=== PATIENT | female | born 1975 | race Caucasian/White ===

== ENCOUNTER 2021-06-12 13:50 | Emergency (ER) | payer SELFPAY ==
[2021-06-12] VITALS (9 sets, daily range): BP systolic 88–154; BP diastolic 54–72; PULSE 64–98; RESP 10–18; TEMP 36.6–36.9; O2SAT 97–100; BMI 25.7
--- NOTE | 2021-06-12 14:15 | HMH.EDGENADL ---
ED Disposition Clinical Impression: Opiate overdose Qualifiers: Encounter type: initial encounter Injury intent: accidental or unintentional Qualified Code(s): T40.601A - Poisoning by unspecified narcotics, accidental (unintentional), initial encounter Disposition: Home, Self-Care Condition on Discharge: Good Instructions: DI for Drug Overdose in Adults Additional Instructions: Return to the emergency department or follow-up with primary care provider for further problems. Referrals: Provider,Referral, [Primary Care Provider] - - Critical Care Critical Care Time: No Attestation: On , the high probability of a clinically significant, sudden or life threatening deterioration of the following system(s) required my full and direct attention, intervention and personal management. The time I documented below is in addition to time spent performing reported procedures but includes the following listed in this critical care notation. Medical Decision Making - Andres Inquiry Pt receiving controlled substance: No Vital Signs: 06/12/21 14:14 06/12/21 15:01 06/12/21 15:33 Temperature 98.4 F Temperature Source Oral Pulse Rate 71 78 Pulse Rate [Radial] 70 Respiratory Rate 16 18 16 Blood Pressure 106/72 L 103/65 L Blood Pressure [Right Arm] 154/54 H Blood Pressure Mean 80 72 Blood Pressure Mean [Right Arm] 87 Blood Pressure Position [Right Arm] Sitting 02 Sat by Pulse Oximetry 98 97 98 Oxygen Delivery Method Room Air 06/12/21 16:00 06/12/21 16:40 06/12/21 17:00 Temperature Temperature Source Pulse Rate 64 72 71 Pulse Rate [Radial] Respiratory Rate 18 14 15 Blood Pressure 100/70 L 103/65 L 89/61 L Blood Pressure [Right Arm] Blood Pressure Mean 68 75 68 Blood Pressure Mean [Right Arm] Blood Pressure Position [Right Arm] 02 Sat by Pulse Oximetry 100 100 99 Oxygen Delivery Method 06/12/21 17:30 06/12/21 18:00 Temperature Temperature Source Pulse Rate Pulse Rate [Radial] Respiratory Rate 16 14 Blood Pressure 90/60 L 88/54 L Blood Pressure [Right Arm] Blood Pressure Mean 68 64 Blood Pressure Mean [Right Arm] Blood Pressure Position [Right Arm] 02 Sat by Pulse Oximetry 98 97 Oxygen Delivery Method - Lab Data Lab Results 06/12/21 16:28: WBC 7.0, RBC 4.59, Hgb 14.0, Hct 44.1, MCV 95.9, MCH 30.4, MCHC 31.7 L, RDW 13.9, Plt Count 258, MPV 8.1, Neut % (Auto) 71.3, Lymph % (Auto) 19.7, [place] % (Auto) 6.7, Eos % (Auto) 1.9, Baso % (Auto) 0.5, Neut # (Auto) 5.0, Lymph # (Auto) 1.4, [place] # (Auto) 0.5, Eos # (Auto) 0.1, Baso # (Auto) 0.0 06/12/21 16:28: Sodium 141, Potassium 3.7, Chloride 110 H, Carbon Dioxide 23, Anion Gap 11.7, BUN 7, Creatinine 0.90, Estimated Creat Clear 83, Estimated GFR 67, Est GFR ( Amer) 81, Glucose 84, Calcium 7.8 L, Total Bilirubin 0.4, AST 16, ALT 8 L, Alkaline Phosphatase 42, Total Protein 6.1 L, Albumin 3.5, Globulin 2.6, Albumin/Globulin Ratio 1.3 06/12/21 16:28: Plasma/Serum Alcohol < 10 Result diagrams: 06/12/21 16:28 06/12/21 16:28 Orders (Tests/Meds): ED MEDICATIONS Discontinued Medications Generic Name Dose Route Start Last Admin Trade Name [place] PRN Reason Stop Dose Admin Naloxone HCl 2 mg 06/12/21 14:15 06/12/21 13:53 Naloxone 2mg/2ml Syringe NS 06/12/21 14:16 2 mg ONCE ONE Administration Naloxone HCl 2 mg 06/12/21 14:18 06/12/21 13:55 Naloxone 2mg/2ml Syringe IV 06/12/21 14:19 2 mg ONCE ONE Administration Ondansetron HCl 4 mg 06/12/21 14:18 06/12/21 14:00 Ondansetron 4mg/2ml Vial IV 06/12/21 14:19 4 mg ONCE ONE Administration Ondansetron HCl 4 mg 06/12/21 14:19 06/12/21 14:05 Ondansetron 4mg/2ml Vial IV 06/12/21 14:20 4 mg ONCE ONE Administration Sodium Chloride 1,000 ml 06/12/21 15:32 06/12/21 17:13 Sodium Chloride 0.9% 1000ml Bag IV 06/12/21 15:33 1,000 ml BOLUS ONE Administration ORDERS Category Date Time Status Drug Screen,Urin
--- NOTE | 2021-06-12 14:23 | ECG_ITS ---
APPROVED REPORT Exam: Resting ECG HR:88 bpm ECG Measurements Heart Rate 88 AXES UT 154 P 55 QRSd 82 QRS 56 QT 396 T 32 QTc 479 Conclusion Normal sinus rhythm Possible Left atrial enlargement Borderline ECG Electronically signed by : Barber Sargent MD 06/16/2021 21:05:14
[2021-06-12 16:43] LABS: Basophils % 0.5 % (0.1-2.0); Eosinophils # 0.1 K/mm3 (0.0-0.4); Eosinophils % 1.9 % (0.1-12.0); Hematocrit 44.1 % (37.0-47.0); Lymphocytes # 1.4 K/mm3 (0.7-4.5); Lymphocytes % 19.7 % (10-50); Mean Corpuscular HGB Conc 31.7 g/dL (31.8-35.4); Mean Corpuscular Hemoglobin 30.4 pg (27.0-31.2); Mean Corpuscular Volume 95.9 fl (81-99); Mean Platelet Volume 8.1 fl (7.4-10.4); Monocytes # 0.5 K/mm3 (0.1-1.0); Monocytes % 6.7 % (1.7-9.3); Neutrophils % 71.3 % (37.0-80.0); Platelet Count 258 K/mm3 (142-424); Red Blood Count 4.59 M/mm3 (4.20-5.40); Red Cell Distribution Width 13.9 % (11.5-17.5)
[2021-06-12 16:52] LABS: Alanine Aminotransferase 8 U/L (12-78); Albumin Level 3.5 g/dl (3.5-5.0); Albumin/Globulin Ratio 1.3 (1.1-1.8); Alkaline Phosphatase 42 U/L (38-126); Anion Gap 11.7 mEq/L (5-15); Aspartate Amino Transferase 16 U/L (14-36); Bilirubin,Total 0.4 mg/dl (0.2-1.3); Blood Urea Nitrogen 7 mg/dl (7-17); Calcium 7.8 mg/dl (8.4-10.2); Carbon Dioxide 23 mmol/L (22.0-30.0); Chloride 110 mmol/L (98-107); Creatinine Clearance Estimated 83 mL/min (50-200); Estimated Glomerular Filt Rate 67 ml/min (>60); Ethyl Alcohol < 10 mg/dl (0-10); GFR (African American) 81 ML/MIN (>60); Globulin 2.6 g/dL (1.3-3.2); Glucose 84 mg/dl (74-100); Potassium 3.7 mmoL/L (3.5-5.1); Sodium 141 mmol/L (136-145); Total Protein,Serum 6.1 g/dl (6.3-8.2)
--- NOTE | 2021-06-12 17:00 | PC.NURSE ---
PT AWAKE ALERT AND ORIENTED X 4 PT GIVEN DINNER TRAY. PT OFFERS NO C/O AT PRESENT
[2021-06-12 18:26] LABS: Benzodiazepines Screen,Urine Negative ng/ml (<200)
[2021-06-12 18:27] LABS: Barbiturates Screen,Urine Negative ng/ml (<200)
[2021-06-12 18:28] LABS: Cannabinoid Screen,Urine Negative ng/ml (<50)
[2021-06-12 18:29] LABS: Cocaine Screen,Urine Negative ng/ml (<300); Methadone Screen,Urine Negative ng/ml (<300)
[2021-06-12 18:30] LABS: Opiate Screen,Urine Negative ng/ml (<300); Phencyclidine Screen,Urine Negative ng/ml (<25)
[2021-06-18 09:49] LABS: Amphetamine Positive (.); Amphetamine (GC/MS) 5984 ng/mL (Cutoff=500); Amphetamines Positive (.); Methamphetamine Positive (.); Methamphetamine (GC/MS) >3000 ng/mL (Cutoff=500)
== END 2021-06-12 19:05 | disposition home or self-care (01) ==
PROVIDERS: Emergency Provider Emergency Medicine
DX: T43.621A Poisoning by amphetamines, accidental (unintentional), initial encounter (principal); R55 Syncope and collapse
CPT/HCPCS: 36415; 80053; 80305; 80324; 85025; 93005; 96365; 96375; 96376; 99283; J2310; J2405